=== PATIENT | female | born 1935 | race Hispanic/Latino ===

== ENCOUNTER 2016-08-18 16:21 | Emergency (ER) | payer MEDICARE ==
--- NOTE | 2016-08-18 17:36 | Emergency Department Report ---
HPI - General Chief Complaint: Fall Time Seen by Provider: 08/18/16 17:22 - HPI HPI: This is a 80-year-old female who presents to the emergency department from home, driven in by her daughter, with complaint of left-sided rib and chest discomfort from a fall that occurred around 2 or 3 PM. The patient was sitting at a dining table and when she got up she got her legs tangled up in the chair and fell onto her left side. She does admit to slightly hitting her head but she denies any loss of consciousness and denies any headache, neck pain , vision change or any neurological deficits. Her only complaint is pain to that left lateral rib cage where they say it has started to turn slightly purple. She did not take anything for symptoms prior to presentation. She has a past medical history of hypertension, hypothyroidism, and hypokalemia. Her primary care doctor is Dr. Logan Rivera. ED Past Medical Hx - Past Medical History Previous Medical History?: Yes Hx Hypertension: Yes Additional medical history: hypothyroidism - Surgical History Past Surgical History?: No - Social History Smoking Status: Never Smoker Substance Use Type: None - Medications Home Medications: Home Medications Medication Instructions Recorded Confirmed Last Taken Type Bisoprolol/Hctz [Ziac 2.5-6.25] 1 tab PO QDAY 08/18/16 08/18/16 Unknown History Levothyroxine [Synthroid] 75 mcg PO QDAY 08/18/16 08/18/16 Unknown History Potassium Chloride [K-Dur] 1 tab PO QDAY 08/18/16 08/18/16 Unknown History ED Review of Systems ROS: Stated complaint: FALL Other details as noted in HPI Comment: All other systems reviewed and negative Constitutional: denies: chills, fever Eyes: denies: eye pain, eye discharge, vision change ENT: denies: ear pain, throat pain Respiratory: denies: cough, wheezing Cardiovascular: chest pain. denies: palpitations Gastrointestinal: denies: abdominal pain, nausea, diarrhea Genitourinary: denies: urgency, dysuria, discharge Musculoskeletal: denies: back pain, joint swelling, arthralgia Skin: other (bruising). denies: rash Neurological: denies: headache, weakness, paresthesias Physical Exam - Physical Exam Physical Exam: GENERAL: The patient is well-developed well-nourished. HEENT: Normocephalic. Atraumatic. Extraocular motions are intact. Patient has moist mucous membranes. NECK: Supple. Trachea is midline. CHEST/LUNGS: Clear to auscultation. There is no respiratory distress noted. There is some tenderness palpation to the left lateral chest and rib wall. No crepitus. HEART/CARDIOVASCULAR: Regular. There is no tachycardia. There is no gallop rub or murmur. ABDOMEN: Abdomen is soft, nontender. Patient has normal bowel sounds. There is no abdominal distention. SKIN: Skin is warm and dry. There is some ecchymosis seen to the left lateral chest and rib wall. NEURO: The patient is awake, alert, and oriented. The patient is cooperative. The patient has no focal neurologic deficits. The patient has normal speech. MUSCULOSKELETAL: There is no tenderness or deformity. There is no limitation range of motion. There is no evidence of acute injury. ED Course - Consultations Consultation #1: I spoke with the trauma attending child welfare consultant at [facility] regarding the rib fractures found today. The trauma surgeon says that the main issue is her pain level. If the patient is able to deal with the pain and is able to do pulmonary toilet and/or full inspirations to avoid pneumonia, then she is most likely able to be discharged home. If the pain is so severe that she is taking small shallow breaths, then monitoring is recommended. 08/18/16 23:06 ED Medical Decision Making - Lab Data Result diagrams: 08/18/16 18:32 08/18/16 18:32 - EKG Data -: EKG Interpreted by Me EKG shows normal: sinus rhythm, axis, intervals, QRS complexes, ST-T waves Rate: normal - EKG Data When compared to previous EKG there are: previous EKG unavailable Interpretation: normal EKG - Radiology Data Radiology results: report reviewed, image reviewed interpreted by me: X-ray of the chest and left-sided rib series shows rib fractures to ribs 6, 7 and 8[address] No pneum[address]orax. CT of the chest without contrast shows left-sided 6, seventh and eighth rib fracture. There is increased opacity in the lateral left aspect of the lung base that is most likely secondary to atelectasis but could possibly be a small lung contusion. Sequela from prior granulomatous process noted. Cholelithiasis. - Medical Decision Making 80-year-old female presents after a fall at home earlier this afternoon in which she fell on her left side. She denies any headache or neck pain and her only significant discomfort is to the left lateral rib cage and/or chest wall. In this area patient has some ecchymosis and is tender to palpation. X-rays show 2-[address] of the chest was done to confirm and look for any other further underlying disease processes or conditions. However the results show the same left rib fractures on ribs 6, 7 and 8. There is possibly some atelectasis versus a small contusion to the lung. I spoke with the [place] trauma attending who says that the main concern is the patient's pain level so that she can continue to take deep breaths and avoid pneumonia or any further sequela from the rib fractures. On reevaluation, the patient says she is feeling much better and is able to take deep breaths without such significant discomfort. This was with only ibuprofen as pain medication. The patient says she does not tolerate any narcotic pain medication for a well and has strong Motrin to take at home. Since she is doing better, with stable vitals including no hypoxia, the patient will be discharged home. She understands return to the emergency department with any worsening of her discomfort, shortness of breath or respiratory distress, or any acute process. - Differential Diagnosis rib Fracture, pneumothorax, contusion, laceration Critical Care Time: No Critical care attestation.: If time is entered above; I have spent that time in minutes in the direct care of this critically ill patient, excluding procedure time. ED Disposition Clinical Impression: Multiple rib fractures Qualifiers: Encounter type: initial encounter Fracture type: closed Laterality: left Qualified Code(s): S22.42XA - Multiple fractures of ribs, left side, initial encounter for closed fracture Fall Qualifiers: Encounter type: initial encounter Qualified Code(s): W19.XXXA - Unspecified fall, initial encounter Disposition: DISCHARGED TO HOME OR SELFCARE Is pt being admited?: No Does the pt Need Aspirin: No Condition: Stable Instructions: Rib Fracture (ED) Additional Instructions: Please follow-up with your primary care doctor as soon as possible. Return to the emergency department with any worsening of her symptoms, worsening rib pain , shortness of breath or respiratory distress, or any acute distress. Make sure to take at least 10 deep breaths every hour that you are awake. Rib fractures take a long time to heal so please do not expect that her symptoms will be fully gone within a few days. Sometimes this takes weeks to months. I've given you a referral for a local orthopedist, Dr. Patterson, to follow up regarding the rib fractures. Referrals: PRIMARY CARE, [Primary Care Provider] - ORI MOLINA MD [Staff Physician] - 3-5 Days Time of Disposition: 22:29
[2016-08-18 18:50] LABS: Basophils % (Auto) 0.5 % (0.0-1.8); Eosinophils % (Auto) 0.3 % (0.0-4.3); Hematocrit 40.7 % (30.3-42.9); Hemoglobin 13.7 gm/dl (10.1-14.3); Mean Corpuscular HGB Conc 34 % (30-34); Mean Corpuscular Hemoglobin 32 pg (28-32); Mean Corpuscular Volume 94 fl (79-97); Platelet Count 353 K/mm3 (140-440); Red Blood Count 4.32 M/mm3 (3.65-5.03); Red Cell Distribution Width 12.8 % (13.2-15.2); White Blood Count 11.4 K/mm3 (4.5-11.0)
[2016-08-18 18:59] LABS: Anion Gap 19 mmol/L; Blood Urea Nitrogen 12 mg/dL (7-17); Calcium 9.8 mg/dL (8.4-10.2); Carbon Dioxide 24 mmol/L (22-30); Chloride 94.5 mmol/L (98-107); Glucose 103 mg/dL (65-100); Potassium 3.6 mmol/L (3.6-5.0); Sodium 134 mmol/L (137-145)
[2016-08-18] MEDS ORDERED: MOTRIN PO ONE (19:22)
--- NOTE | 2016-08-18 19:57 | XRay Report ---
FINAL REPORT EXAM: XR RIBS UNI W PA CHEST 3 LT HISTORY: fall, rib/chest pain TECHNIQUE: Single-view chest with additional views of the left ribs. Six images PRIORS: None. FINDINGS: Lung volumes are diminished. No definite pneumothorax is identified. The heart is enlarged. There are fractures of the left 6th, 7th and 8th ribs. There are surgical clips in the soft tissues at the base of the neck. IMPRESSION: 1. Cardiomegaly. 2. There are fractures of the left 6th, 7th and 8th ribs.
--- NOTE | 2016-08-18 22:09 | Cat Scan Report ---
FINAL REPORT EXAM: CT CHEST WO CON HISTORY: fall, rib fractures TECHNIQUE: Noncontrast serial axial images through the chest with coronal and sagittal reconstruction PRIORS: Radiograph from 08/18/2016. FINDINGS: There is increased opacity in the lateral aspect of the left lung base. No pleural effusion or pneumothorax is seen. The heart measures approximately 13.7 centimeters in length. No mediastinal adenopathy is identified. There are calcified lymph nodes in the left hilar [place]. Cholelithiasis is noted. Calcified granulomata are seen in the liver and spleen. There is a small hiatal hernia. Left 6th, 7th and 8th rib fractures are again noted. IMPRESSION: 1. Left 6th, 7th and 8th rib fractures. 2. There is increased opacity in the lateral aspect of the left lung base. This may be secondary to atelectasis. Possibility of contusion is not excluded in the setting of trauma. 3. Sequelae from prior granulomatous process are noted. 4. Cholelithiasis.
[2016-08-18 23:34] VITALS: BP 142/65
== END 2016-08-18 22:45 | disposition home or self-care (01) ==
LOC: ED 16:21
DX: S22.42XA Multiple fractures of ribs, left side, initial encounter for closed fracture (principal); E03.9 Hypothyroidism, unspecified; W18.30XA Fall on same level, unspecified, initial encounter; Y93.9 Activity, unspecified; Y92.9 Unspecified place or not applicable; Y99.9 Unspecified external cause status
CPT/HCPCS: 36415; 71250; 80048; 84443; 84484; 85025; 93005; 93010; 99285